=== PATIENT | female | born 1985 | race Caucasian/White ===

== ENCOUNTER 2017-04-22 18:01 | Emergency (ER) | payer MEDICAID, OTHER ==
[~2017-04-22] VITALS: Ht 162.6 cm; Wt 99.8 kg
[2017-04-22 18:22] VITALS: BP 109/65
== END 2017-04-22 19:38 | disposition left against medical advice (07) ==
LOC: ER 18:04
DX: M25.511 Pain in right shoulder (principal); Z53.21 Procedure and treatment not carried out due to patient leaving prior to being seen by health care provider
CPT/HCPCS: 99281

== ENCOUNTER 2017-10-07 17:45 | Emergency (ER) | payer MEDICAID ==
[~2017-10-07] VITALS: Ht 162.6 cm; Wt 104.3 kg
--- OUTSIDE RECORDS SUMMARY | 2017-10-07 17:51 | XMS REPORT ---
Author Author CHANDLER VOSS Organization [facility] Address [address] [place] [address] Care Team Providers Care Instructor Decorating Name Role Phone CHANDLER VOSS Unavailable PROBLEMS Type Condition ICD9-CM Code [id number] Code Onset Dates Condition Status SNOMED Code Problem Other chronic pain G89.29 Active 66695994 Problem Lumbago with sciatica, right side M54.41 Active 846238942 ALLERGIES Substance Reaction Event Type Date Status N.K.D.A. Unknown Non Drug Allergy Nov, Unknown SOCIAL HISTORY No smoking Hx information available PLAN OF CARE VITAL SIGNS MEDICATIONS Medication Instructions Dosage Frequency Start Date End Date Duration Status Ibuprofen 800 MG Orally Three times a day as needed for back pain 1 tablet Nov, Dec, 30 day(s) Active RESULTS No Results PROCEDURES No Known procedures IMMUNIZATIONS No Known Immunizations
--- OUTSIDE RECORDS SUMMARY | 2017-10-07 17:51 | XMS REPORT ---
Author Author CHANDLER VOSS Organization [facility] Address [address] [place] [address] Care Team Providers Care Student Development Specialist Name Role Phone CHANDLER VOSS Unavailable PROBLEMS Type Condition ICD9-CM Code [id number] Code Onset Dates Condition Status SNOMED Code Problem Other chronic pain G89.29 Active 17523020 Problem Lumbago with sciatica, right side M54.41 Active 843745952 ALLERGIES No Known Allergies SOCIAL HISTORY Never Assessed PLAN OF CARE Activity Details Follow Up 4 Weeks Reason:for establish care VITAL SIGNS Height 64 in 2016-11-27 Weight 236 lbs 2016-11-27 Temperature 98.2 degrees Fahrenheit 2016-11-27 Heart Rate 72 bpm 2016-11-27 Respiratory Rate 16 2016-11-27 BMI 40.50 kg/m2 2016-11-27 Blood pressure systolic 110 mmHg 2016-11-27 Blood pressure diastolic 70 mmHg 2016-11-27 MEDICATIONS Medication Instructions Dosage Frequency Start Date End Date Duration Status Ibuprofen 800 MG Orally Three times a day as needed for back pain 1 tablet Nov, Dec, 30 day(s) Active RESULTS No Results PROCEDURES No Known procedures IMMUNIZATIONS No Known Immunizations MEDICAL (GENERAL) HISTORY Type Description Date Surgical History section x 6. 2002, 2004, 2005, 2006, 2009, 2011 Surgical History hysterectomy 01/21 Hospitalization History Surgeries/Childbirth only
[2017-10-07 20:15] LABS: BILIRUBIN,URINE NEGATIVE (NEGATIVE); KETONES,URINE NEGATIVE (NEGATIVE); LEUKOCYTE ESTERASE ,URINE NEGATIVE (NEGATIVE); NITRITE,URINE NEGATIVE (NEGATIVE); PH,URINE 6 (5-9); PROTEIN,URINE NEGATIVE (NEGATIVE); UROBILINOGEN,URINE 1 MG/DL (NORMAL)
[2017-10-07] MEDS ORDERED: NS IV 1000 ML 1,000 ML IV ONE (20:53)
[2017-10-07] MEDS ORDERED: FAMOTIDINE 20MG/2ML IV (PEPCID) IV STA (20:53)
[2017-10-07] MEDS ORDERED: fentaNYL INJECTION 100 MCG/2 ML AMP IVP ONE (21:00)
[2017-10-07] MEDS ORDERED: ANTACID SUSP 30 ML UDC (MYLANTA) PO ONE (21:00)
[2017-10-07] MEDS ORDERED: LIDOCAINE 2% VISCOUS 15 ML UDC PO ONE (21:00)
[2017-10-07 21:18] LABS: BASOPHILS # (AUTO) 0.1 10^3/uL (0.0-0.1); BASOPHILS % (AUTO) 1 % (0-10); EOSINOPHILS # (AUTO) 0.5 10^3/uL (0.0-0.3); EOSINOPHILS % (AUTO) 4 % (0-10); LYMPHOCYTES # (AUTO) 3.8 X 10^3 (1.0-4.0); LYMPHOCYTES % (AUTO) 27 % (12-44); MEAN CORPUSCULAR HEMOGLOBIN 25 PG (25-34); MEAN CORPUSCULAR HGB CONC 34 G/DL (32-36); MEAN CORPUSCULAR VOLUME 74 FL (80-99); MEAN PLATELET VOLUME 11.3 FL (7.4-10.4); MONOCYTES # (AUTO) 1.1 X 10^3 (0.0-1.0); MONOCYTES % (AUTO) 8 % (0-12); NEUTROPHILS # (AUTO) 8.5 X 10^3 (1.8-7.8); NEUTROPHILS % (AUTO) 61 % (42-75); PLATELET COUNT 283 10^3/uL (130-400); RED BLOOD COUNT 5.32 10^6/uL (4.35-5.85); RED CELL DISTRIBUTION WIDTH 15.3 % (10.0-14.5); WHITE BLOOD COUNT 13.9 10^3/uL (4.3-11.0)
[2017-10-07 21:35] LABS: ALANINE AMINOTRANSFERASE 15 U/L (0-55); ANION GAP 9 MMOL/L (5-14); ASPARTATE AMINO TRANSFERASE 13 U/L (5-34); BILIRUBIN,TOTAL 0.2 MG/DL (0.1-1.0); BLOOD UREA NITROGEN 10 MG/DL (7-18); BUN/CREATININE RATIO 15; CALCIUM 9.3 MG/DL (8.5-10.1); CARBON DIOXIDE 23 MMOL/L (21-32); CHLORIDE 105 MMOL/L (98-107); CREATININE SERUM 0.68 MG/DL (0.60-1.30); GFR ESTIMATED > 60; GLUCOSE 86 MG/DL (70-105); POTASSIUM 4.3 MMOL/L (3.6-5.0); SODIUM 137 MMOL/L (135-145); TOTAL PROTEIN 7.1 GM/DL (6.4-8.2)
[2017-10-07] MEDS ORDERED: NS 100 ML (IVPB) BAG IV ONE (22:00)
[2017-10-07] MEDS ORDERED: IOHEXOL 350 MG/ML 100 ML (OMNIPAQUE 350) VIAL IV ONE (22:00)
--- NOTE | 2017-10-07 22:20 | Diagnostic Imaging Report ---
PROCEDURE: CT abdomen and pelvis with contrast, rule out appendicitis. TECHNIQUE: Multiple contiguous axial images were obtained through the abdomen and pelvis after the administration of intravenous contrast. INDICATION: Lower abdominal pain. Nausea, vomiting, and diarrhea. COMPARISON: None. FINDINGS: Included portions of the lung bases are clear. CT ABDOMEN: Normal appendix is identified. Small bowel loops are nondistended. The kidneys, adrenal glands, spleen, pancreas, and liver have a normal CT appearance. There is no loculated fluid collection, free fluid, nor free air within the abdomen. No abnormal mesenteric or retroperitoneal adenopathy is seen. Bony structures show no acute abnormalities. CT PELVIS: There is a dominant cystic structure within the left adnexa that measures 5.2 x 3.9 cm. Smaller similar-appearing focus is noted along the superomedial and slightly posterior margins of the dominant cyst and measures approximately 1.1 cm in diameter. There is no prior available for comparison. Urinary bladder is grossly unremarkable. There is no loculated fluid collection, free fluid, nor free air within the pelvis. No abnormal adenopathy is seen. Bony structures show no acute abnormalities. IMPRESSION: 1. Complex cystic structure in the left adnexa; likely ovarian. Conceivably, findings could be on the basis of hemorrhagic cyst. Soft tissue component cannot be excluded based on this exam. Cystadenoma is also within the differential. Further evaluation with dedicated pelvic sonogram is strongly recommended. Dictated by: Dictated on workstation # [id number]
--- NOTE | 2017-10-07 22:52 | ED Abdominal Pain ---
General Chief Complaint: Abdominal/GI Problems Stated Complaint: LOWER ABD PAIN Nursing Triage Note: pt c/o middle lower abd pain starting yesterday. denies n/v/d. Sepsis Screen: No Definite Risk Source of Information: Patient Exam Limitations: No Limitations History of Present Illness Time Seen By Provider: 20:45 Initial Comments Patient presents to ER by private conveyance with a chief complaint that going on 2 days she's had progressively worsening abdominal pain in her superpubic region that radiates to her right lower quadrant. It is worse with movement. Her bowel movements of been normal. She has no dysuria. She's had no fevers, chills however she has had some nausea but no vomiting. She has had a hysterectomy and right ovary removed for ovarian cyst. She's had 6 C-sections. She says the pain is so severe it feels like right after having a section. Allergies and Home Medications Allergies Coded Allergies: No Known Drug Allergies (Unverified , 04/22/17) Home Medications No Active Prescriptions or Reported Meds Review of Systems Constitutional: No chills, No fever, No malaise EENTM: No Symptoms Reported Respiratory: Denies Cough, Denies Shortness of Air Cardiovascular: Denies Chest Pain, Denies Syncope Gastrointestinal: See HPI, Abdominal Pain, Denies Constipated, Denies Diarrhea , Nausea Genitourinary: Denies Burning, Denies Discharge Musculoskeletal: No back pain, No joint pain Skin: No pruritus, No rash Psychiatric/Neurological: Denies Headache, Denies Numbness, Denies Paresthesia Past Vufzmba-Xadxjq-Dmzfxv Hx Patient Social History Alcohol Use: Denies Use Recreational Drug Use: No Smoking Status: Current Everyday Smoker Type Used: Cigarettes Recent Foreign Travel: No Contact w/Someone Who Travel: No Recent Infectious Disease Expo: No Recent Hopitalizations: No Physical Abuse: No Sexual Abuse: No Seasonal Allergies Seasonal Allergies: No Surgeries History of Surgeries: Yes (d&c) Surgeries: Section, Hysterectomy Respiratory History of Respiratory Disorde: No Cardiovascular History of Cardiac Disorders: No Neurological History of Neurological Disord: 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 Genitourinary History of Genitourinary Disor: No Gastrointestinal History of Gastrointestinal Di: No Musculoskeletal History of Musculoskeletal Dis: No Endocrine History of Endocrine Disorders: No HEENT History of HEENT Disorders: No Cancer History of Cancer: No Psychosocial History of Psychiatric Problem: No Suicide Risk Score: 0 Integumentary History of Skin or Integumenta: No Blood Transfusions History of Blood Disorders: No Physical Exam Vital Signs VS - Last 72 Hours, by Label 10/07/17 18:42 Temp 98.5 Pulse 76 Resp 16 B/P (MAP) 127/63 (84) Capillary Refill : Less Than 3 Seconds General Appearance: WD/WN, moderate distress HEENT: PERRL/EOMI, pharynx normal Neck: non-tender, supple, normal inspection Respiratory: chest non-tender, lungs clear, normal breath sounds, no respiratory distress, no accessory muscle use Cardiovascular: normal peripheral pulses, regular rate, rhythm, no edema Peripheral Pulses: 2+ Dorsalis Pedis (R), 2+ Left Dors-Pedis (L) Gastrointestinal: normal bowel sounds, No distended, guarding, rebound (right lower quadrant), tenderness (bilateral lower quadrants especially right as well as suprapubic.) Extremities: no pedal edema, normal capillary refill Neurologic/Psychiatric: alert, normal mood/affect, oriented x 3 Skin: normal color, warm/dry Focused Exam Evaluation Lactate Level Laboratory Tests 10/07/17 21:20: Lactic Acid Level 0.78 Lactic Acid Level Laboratory Tests Test 10/07/17 21:20 Lactic Acid Level 0.78 MMOL/L (0.50-2.00) Progress/Results/Core Measures Results/Orders Lab Results Laboratory Tests Test 10/07/17 20:10 10/07/17 21:05 10/07/17 21:20 Range/Units Urine Color YELLOW Urine Clarity CLEAR Urine pH 6 5-9 Urine Specific Freer 1.020 1.016-1.022 Urine Protein NEGATIVE NEGATIVE Urine Glucose (UA) NEGATIVE NEGATIVE Urine Ketones NEGATIVE NEGATIVE Urine Nitrite NEGATIVE NEGATIVE Urine Bilirubin NEGATIVE NEGATIVE Urine Urobilinogen 1 NORMAL MG/DL Urine Leukocyte Esterase NEGATIVE NEGATIVE Urine RBC (Auto) 1+ H NEGATIVE Urine RBC 0-2 /HPF Urine WBC NONE /HPF Urine Squamous Epithelial Cells 2-5 /HPF Urine Crystals NONE /LPF Urine Bacteria FEW H /HPF Urine Casts NONE /LPF Urine Mucus SMALL H /LPF Urine Culture Indicated NO Urine Opiates Screen NEGATIVE NEGATIVE Urine Oxycodone Screen NEGATIVE NEGATIVE Urine Methadone Screen NEGATIVE NEGATIVE Urine Propoxyphene Screen NEGATIVE NEGATIVE Urine Barbiturates Screen NEGATIVE NEGATIVE Ur Tricyclic Antidepressants Screen NEGATIVE NEGATIVE Urine Phencyclidine Screen NEGATIVE NEGATIVE Urine Amphetamines Screen NEGATIVE NEGATIVE Urine Methamphetamines Screen NEGATIVE NEGATIVE Urine Benzodiazepines Screen NEGATIVE NEGATIVE Urine Cocaine Screen NEGATIVE NEGATIVE Urine Cannabinoids Screen NEGATIVE NEGATIVE White Blood Count 13.9 H 4.3-11.0 10^3/uL Red Blood Count 5.32 4.35-5.85 10^6/uL Hemoglobin 13.2 11.5-16.0 G/DL Hematocrit 39 35-52 % Mean Corpuscular Volume 74 L 80-99 FL Mean Corpuscular Hemoglobin 25 25-34 PG Mean Corpuscular Hemoglobin Concent 34 32-36 G/DL Red Cell Distribution Width 15.3 H 10.0-14.5 % Platelet Count 283 130-400 10^3/uL Mean Platelet Volume 11.3 H 7.4-10.4 FL Neutrophils (%) (Auto) 61 42-75 % Lymphocytes (%) (Auto) 27 12-44 % Monocytes (%) (Auto) 8 0-12 % Eosinophils (%) (Auto) 4 0-10 % Basophils (%) (Auto) 1 0-10 % Neutrophils # (Auto) 8.5 H 1.8-7.8 X 10^3 Lymphocytes # (Auto) 3.8 1.0-4.0 X 10^3 Monocytes # (Auto) 1.1 H 0.0-1.0 X 10^3 Eosinophils # (Auto) 0.5 H 0.0-0.3 10^3/uL Basophils # (Auto) 0.1 0.0-0.1 10^3/uL Sodium Level 137 135-145 MMOL/L Potassium Level 4.3 3.6-5.0 MMOL/L Chloride Level 105 98-107 MMOL/L Carbon Dioxide Level 23 21-32 MMOL/L Anion Gap 9 5-14 MMOL/L Blood Urea Nitrogen 10 7-18 MG/DL Creatinine 0.68 0.60-1.30 MG/DL Estimat Glomerular Filtration Rate > 60 BUN/Creatinine Ratio 15 Glucose Level 86 70-105 MG/DL Calcium Level 9.3 8.5-10.1 MG/DL Total Bilirubin 0.2 0.1-1.0 MG/DL Aspartate Amino Transf (AST/SGOT) 13 5-34 U/L Alanine Aminotransferase (ALT/SGPT) 15 0-55 U/L Alkaline Phosphatase 67 40-136 U/L Total Protein 7.1 6.4-8.2 GM/DL Albumin 4.0 3.2-4.5 GM/DL Lactic Acid Level 0.78 0.50-2.00 MMOL/L My Orders Orders - DWIGHT BARRETO Ua Culture If Indicated (10/07/17 20:07) Ct Abd/Pelv W (Appendicitis) (10/07/17 20:53) Cbc With Automated Diff (10/07/17 20:53) Comprehensive Metabolic Panel (10/07/17 20:53) Drug Screen Stat (Urine) (10/07/17 20:53) Lactic Acid Analyzer (10/07/17 20:53) Saline Lock/Iv-Start (10/07/17 20:53) Ns Iv 1000 Ml (Sodium Chloride 0.9%) (10/07/17 20:53) Lidocaine 2% Viscous 15 Ml (Xylocaine Vi (10/07/17 21:00) Antacid Suspension (Mylanta Suspension (10/07/17 21:00) Famotidine Injection (Pepcid Injection) (10/07/17 20:53) Fentanyl Injection (Sublimaze Injection (10/07/17 21:00) Iohexol Injection (Omnipaque 350 Mg/Ml 1 (10/07/17 22:00) Ns (Ivpb) (Sodium Chloride 0.9% Ivpb Bag (10/07/17 22:00) Pharmacy Communication (Pharmacy Communi (10/07/17 21:46) Us Non Ob Pelvis Comp/Transvag (10/07/17 22:57) Fentanyl Injection (Sublimaze Injection (10/08/17 00:00) Medications Given in ED Current Medications Medications Dose Ordered Sig/Franklyn Route Start Time Stop Time Status Last Admin Dose Admin Al Hydrox/Mg Hydrox/Simethicone 30 ml ONCE ONCE PO 10/07/17 21:00 10/07/17 21:01 DC 10/07/17 21:17 30 ML Fentanyl Citrate 50 mcg ONCE ONCE IVP 10/07/17 21:00 10/07/17 21:01 DC 10/07/17 21:20 50 MCG Fentanyl Citrate 50 mcg ONCE ONCE IVP 10/08/17 00:00 10/08/17 00:01 DC 10/08/17 00:17 50 MCG Iohexol 100 ml ONCE ONCE IV 10/07/17 22:00 10/07/17 22:01 DC 10/07/17 21:55 100 ML Lidocaine HCl 15 ml ONCE ONCE PO 10/07/17 21:00 10/07/17 21:01 DC 10/07/17 21:17 15 ML Sodium Chloride 80 ml ONCE ONCE IV 10/07/17 22:00 10/07/17 22:01 DC 10/07/17 21:55 80 ML Sodium Chloride 1,000 ml @ 0 mls/hr Q0M ONCE IV 10/07/17 20:53 10/07/17 20:56 DC 10/07/17 21:19 0 MLS/HR Vital Signs/I&O Vital Sign - Last 12Hours 10/07/17 18:42 Temp 98.5 Pulse 76 Resp 16 B/P (MAP) 127/63 (84) Blood Pressure Mean: 84 Diagnostic Imaging Diagonstic Imaging: CT Plain Films/CT/US/NM/MRI: abdomen, pelvis (with contrast) Comments NAME: KURTIS TORRES [facility] REC#: [id number] PHYSICIAN: DWIGHT BARRETO MD CC: RUTH MORALES MD; DWIGHT BARRETO Page 2 of 2 RADIOLOGY REPORT VIA [place], [place] CC: RUTH MORALES MD; DWIGHT BARRETO Page 1 of 2 RADIOLOGY REPORT NAME: MELISSAKURTIS Rivera [facility] REC#: [id number] PT STATUS: REG ER : 1985 PHYSICIAN: DWIGHT BARRETO MD ADMIT DATE: 10/07/17/ER Signed Date of Exam: 10/07/17 CT ABD/PELV W (APPENDICITIS) PROCEDURE: CT abdomen and pelvis with contrast, rule out appendicitis. TECHNIQUE: Multiple contiguous axial images were obtained through the abdomen and pelvis after the administration of intravenous contrast. INDICATION: Lower abdominal pain. Nausea, vomiting, and diarrhea. COMPARISON: None. FINDINGS: Included portions of the lung bases are clear. CT ABDOMEN: Normal appendix is identified. Small bowel loops are nondistended. The kidneys, adrenal glands, spleen, pancreas, and liver have a normal CT appearance. There is no loculated fluid collection, free fluid, nor free air within the abdomen. No abnormal mesenteric or retroperitoneal adenopathy is seen. Bony structures show no acute abnormalities. CT PELVIS: There is a dominant cystic structure within the left adnexa that measures 5.2 x 3.9 cm. Smaller similar-appearing focus is noted along the superomedial and slightly posterior margins of the dominant cyst and measures approximately 1.1 cm in diameter. There is no prior available for comparison. Urinary bladder is grossly unremarkable. There is no loculated fluid collection, free fluid, nor free air within the pelvis. No abnormal adenopathy is seen. Bony structures show no acute abnormalities. IMPRESSION: 1. Complex cystic structure in the left adnexa; likely ovarian. Conceivably, findings could be on the basis of hemorrhagic cyst. Soft tissue component cannot be excluded based on this exam. Cystadenoma is also within the differential. Further evaluation with dedicated pelvic sonogram is strongly recommended. Dictated by: Dictated on workstation # [id number] Dict: 10/07/172210 Trans: 10/07/172239 Interpreted by: RUTH MORALES MD Electronically signed by: RUTH MORALES MD 10/07/172239 Reviewed: Reviewed by Me Diagonstic Imaging: Ultrasound Plain Films/CT/US/NM/MRI: pelvis Comments Stat read: Findings suggestive of a left ovarian hemorrhagic cyst measuring up to 4.67 m. Recommend follow-up ultrasound in 6-8 weeks to document resolution. Reviewed: Reviewed by Me Departure Impression Impression: Primary Impression: Hemorrhagic cyst of left ovary Disposition: HOME, SELF-CARE Condition: Improved Departure-Patient Inst. Decision time for Depature: 02:04 Referrals: NO,LOCAL PHYSICIAN (PCP/Family) Primary Care Physician Patient Instructions: Ovarian Cyst (DC) Add. Discharge Instructions: Drink plenty of fluids and get some rest tonight. Use Tylenol 1000 mg every 8 hours and or ibuprofen 800 mg every 8 hours as needed for pain. If this does not control your pain well enough you may use the hydrocodone one tablet every 6 hours as needed. Hydrocodone can cause constipation so you should be on some stool softener while using it. Establish with a primary care physician and planned follow-up ultrasound in 6-8 weeks to document resolution of your hemorrhagic ovarian cyst. All discharge instructions reviewed with patient and/or family. Voiced understanding. Scripts Hydrocodone/Acetaminophen (Hydrocodon -Acetaminophen 5-325) 1 Each Tablet 1 EACH PO Q6H Y for BREAKTHROUGH PAIN, #15 TAB 0 Refills Prov: DWIGHT BARRETO 10/08/17 DWIGHT BARRETO Oct 07, 2017 22:52
[2017-10-08] MEDS ORDERED: fentaNYL INJECTION 100 MCG/2 ML AMP IVP ONE
[2017-10-08] MEDS ORDERED: HYDR-3812 PO (02:06)
[2017-10-08 02:22] VITALS: BP 127/63
--- NOTE | 2017-10-08 07:20 | Diagnostic Imaging Report ---
Transabdominal and transvaginal pelvic ultrasound. INDICATION: Severe pelvic pain. History of hysterectomy and right oophorectomy. FINDINGS: The hysterectomy bed is unremarkable. There is a left adnexal mass measuring 5.8 x 4.6 x 4.9 cm with internal hypoechoic appearance and layering seen with generally no internal vascularity except at the periphery which probably represents ovarian tissue based on the ultrasound images provided with color Doppler. The lesion is most likely related to a hemorrhagic cyst. The hemorrhagic cyst itself is up to 4.6 cm in size. IMPRESSION: Left ovarian hypoechoic heterogenous mass measuring 4.6 cm with suggestion of adjacent left ovarian tissue that has internal vascularity. The mass is probably a hemorrhagic left ovarian cyst. Followup ultrasound in six weeks is recommended to document resolution. This reading agrees with the [facility] report. Dictated by: Dictated on workstation # [id number]
== END 2017-10-08 02:24 | disposition home or self-care (01) ==
LOC: EDUNIT# 17:45 → ER 17:47
DX: N83.202 Unspecified ovarian cyst, left side (principal); F17.210 Nicotine dependence, cigarettes, uncomplicated; Z90.710 Acquired absence of both cervix and uterus; Z87.59 Personal history of other complications of pregnancy, childbirth and the puerperium
CPT/HCPCS: 36415; 74177; 76830; 76856; 80053; 80306; 81000; 83605; 85025

== ENCOUNTER 2018-04-09 15:59 | Emergency (ER) | payer MEDICAID ==
[~2018-04-09] VITALS: Ht 162.6 cm; Wt 99.3 kg
[~2018-04-09 15:59] MED LIST: ACHD5005 PO
[2018-04-09] MEDS ORDERED: LACTATED RINGERS 1,000 ML IV ONE (16:55)
[2018-04-09] MEDS ORDERED: ONDANSETRON 4 MG/2 ML (SDV) Z0FRAN IVP ONE (17:00)
[2018-04-09 17:03] LABS: BASOPHILS # (AUTO) 0.1 10^3/uL (0.0-0.1); BASOPHILS % (AUTO) 1 % (0-10); BILIRUBIN,URINE NEGATIVE (NEGATIVE); CLARITY,URINE SLIGHTLY CLOUDY; COLOR,URINE YELLOW; EOSINOPHILS # (AUTO) 0.2 10^3/uL (0.0-0.3); EOSINOPHILS % (AUTO) 2 % (0-10); GLUCOSE, URINE (UA) NEGATIVE (NEGATIVE); HEMATOCRIT 35 % (35-52); HEMOGLOBIN 12.2 G/DL (11.5-16.0); KETONES,URINE 1+ (NEGATIVE); LEUKOCYTE ESTERASE ,URINE 1+ (NEGATIVE); LYMPHOCYTES # (AUTO) 2.3 X 10^3 (1.0-4.0); LYMPHOCYTES % (AUTO) 21 % (12-44); MEAN CORPUSCULAR HEMOGLOBIN 26 PG (25-34); MEAN CORPUSCULAR HGB CONC 35 G/DL (32-36); MEAN CORPUSCULAR VOLUME 74 FL (80-99); MEAN PLATELET VOLUME 11.4 FL (7.4-10.4); MONOCYTES # (AUTO) 0.6 X 10^3 (0.0-1.0); MONOCYTES % (AUTO) 6 % (0-12); NEUTROPHILS # (AUTO) 7.6 X 10^3 (1.8-7.8); NEUTROPHILS % (AUTO) 70 % (42-75); NITRITE,URINE NEGATIVE (NEGATIVE); PH,URINE 5 (5-9); PLATELET COUNT 229 10^3/uL (130-400); PROTEIN,URINE 1+ (NEGATIVE); RED BLOOD COUNT 4.73 10^6/uL (4.35-5.85); RED CELL DISTRIBUTION WIDTH 15.2 % (10.0-14.5); UROBILINOGEN,URINE NORMAL (NORMAL); WHITE BLOOD COUNT 10.8 10^3/uL (4.3-11.0)
[2018-04-09 17:10] LABS: BACTERIA,URINE TRACE /HPF; WBC,URINE RARE /HPF
[2018-04-09] MEDS ORDERED: KETOROLAC 30 MG/ML VIAL IVP STA (17:12)
[2018-04-09 17:20] LABS: ALANINE AMINOTRANSFERASE 14 U/L (0-55); ALKALINE PHOSPHATASE 71 U/L (40-136); AMYLASE 38 U/L (25-125); BILIRUBIN,TOTAL 0.4 MG/DL (0.1-1.0); BUN/CREATININE RATIO 12; CALCIUM 8.9 MG/DL (8.5-10.1); CARBON DIOXIDE 22 MMOL/L (21-32); CHLORIDE 111 MMOL/L (98-107); CREATININE SERUM 0.66 MG/DL (0.60-1.30); GFR ESTIMATED > 60; GLUCOSE 82 MG/DL (70-105); LIPASE 7 U/L (8-78); POTASSIUM 3.6 MMOL/L (3.6-5.0); SODIUM 143 MMOL/L (135-145); TOTAL PROTEIN 6.5 GM/DL (6.4-8.2)
--- NOTE | 2018-04-09 17:25 | ED Abdominal Pain ---
General Chief Complaint: Abdominal/GI Problems Stated Complaint: THROWING UP,CAN'T KEEP ANYTHING DOWN, ABD PAIN Nursing Triage Note: PT CO OF R LOWER ABD PAIN SINCE APPROX 1100 TODAY. PT STATES HAS HAD DIARRHEA ONCE, AND VOMITING A COUPLE TIMES, PT VERY TENDER TO R LOWER ABD. Sepsis Screen: No Definite Risk Source of Information: Patient Exam Limitations: No Limitations History of Present Illness Date Seen by Provider: Apr 09, 2018 Time Seen by Provider: 16:23 Initial Comments PT ARRIVES VIA POV FROM HOME STATES SHE HAS "NOT FELT GOOD" FOR THE LAST 2-3 DAYS C/O RLQ PAIN SINCE 1100 TODAY--STATES PAIN IS "DULL, ACHEY" C/O NAUSEA/VOMITING AND DIARRHEA--EMESIS X 2, DIARRHEA X 1 STATES SHE CANNOT KEEP WATER OR GATORADE DOWN NO URINARY SYMPTOMS AND VOIDING A NORMAL AMOUNT NO FEVER/SWEATS/CHILLS ATE BREAKFAST AT 0840 THIS AM--BISCUIT + GRAVY. NO KNOWN SICK CONTACTS OR SUSPICIOUS FOODS NO HISTORY OF SIMILAR Allergies and Home Medications Allergies Coded Allergies: No Known Drug Allergies (Unverified , 04/22/17) Home Medications Naproxen 500 Mg Tablet, 500 MG PO BID Prescribed by: WAI FOSTER on 04/09/181746 Nitrofurantoin Monohyd/M-Cryst 100 Mg Capsule, 100 MG PO BID Prescribed by: WAI FOSTER on 04/09/181746 Patient Home Medication List Home Medication List Reviewed: Yes Review of Systems Constitutional: no symptoms reported Gastrointestinal: See HPI, Abdominal Pain, Diarrhea, Nausea, Poor Appetite, Poor Fluid Intake, Vomiting Genitourinary: No Symptoms Reported Musculoskeletal: no symptoms reported Past Zxjvpki-Vwutyj-Vujweh Hx Patient Social History Alcohol Use: Denies Use Recreational Drug Use: Yes (DENIES, BUT TESTED + FOR APMHETAMINES AND BENZO'S ON 04/09/18 ) Smoking Status: Current Everyday Smoker (1 PPD) Type Used: Cigarettes Recent Foreign Travel: No Contact w/Someone Who Travel: No Recent Infectious Disease Expo: No Recent Hopitalizations: No Physical Abuse: No Sexual Abuse: No Seasonal Allergies Seasonal Allergies: No Past Medical History Surgeries: Yes (D&C; HYST/RSO) Section, Hysterectomy, Oophorectomy Respiratory: No Cardiac: No 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 Genitourinary: No Gastrointestinal: No Musculoskeletal: No Endocrine: No HEENT: Yes (EXTENSIVE DENTAL DECAY) Cancer: No Psychosocial: No Nursing Suicide Risk Score: 0 Integumentary: No Blood Disorders: No Physical Exam Vital Signs Vital Signs - First Documented 04/09/18 16:30 Temp 97.5 Pulse 86 Resp 18 B/P (MAP) 111/52 (71) Pulse Ox 95 Capillary Refill : Less Than 3 Seconds General Appearance: WD/WN, no apparent distress, obese, other (PT WALKS UPRIGHT AND MOVES WITHOUT DIFFICULTY) HEENT: other (EXTENSIVE DENTAL DECAY--ESPECIALLY FRONT TEETH--ALL DECAYED DOWN TO GUMS) Respiratory: normal breath sounds Cardiovascular: regular rate, rhythm, no murmur Gastrointestinal: normal bowel sounds, soft, no organomegaly, no pulsatile mass ; No distended, No guarding, No rebound; tenderness (DIFFUSE ABDOMINAL TENDERNESS, BUT MOST TENDER IN RLQ, SUPRABPUBIC AREAS ); No mass Extremities: normal inspection Back: normal inspection, no CVA tenderness 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, no motor/sensory deficits, alert, normal mood/affect, oriented x 3 Skin: normal color, warm/dry Progress/Results/Core Measures Results/Orders Lab Results Laboratory Tests Test 04/09/18 16:55 Range/Units White Blood Count 10.8 4.3-11.0 10^3/uL Red Blood Count 4.73 4.35-5.85 10^6/uL Hemoglobin 12.2 11.5-16.0 G/DL Hematocrit 35 35-52 % Mean Corpuscular Volume 74 L 80-99 FL Mean Corpuscular Hemoglobin 26 25-34 PG Mean Corpuscular Hemoglobin Concent 35 32-36 G/DL Red Cell Distribution Width 15.2 H 10.0-14.5 % Platelet Count 229 130-400 10^3/uL Mean Platelet Volume 11.4 H 7.4-10.4 FL Neutrophils (%) (Auto) 70 42-75 % Lymphocytes (%) (Auto) 21 12-44 % Monocytes (%) (Auto) 6 0-12 % Eosinophils (%) (Auto) 2 0-10 % Basophils (%) (Auto) 1 0-10 % Neutrophils # (Auto) 7.6 1.8-7.8 X 10^3 Lymphocytes # (Auto) 2.3 1.0-4.0 X 10^3 Monocytes # (Auto) 0.6 0.0-1.0 X 10^3 Eosinophils # (Auto) 0.2 0.0-0.3 10^3/uL Basophils # (Auto) 0.1 0.0-0.1 10^3/uL Urine Color YELLOW Urine Clarity SLIGHTLY CLOUDY Urine pH 5 5-9 Urine Specific [place] 1.025 H 1.016-1.022 Urine Protein 1+ H NEGATIVE Urine Glucose (UA) NEGATIVE NEGATIVE Urine Ketones 1+ H NEGATIVE Urine Nitrite NEGATIVE NEGATIVE Urine Bilirubin NEGATIVE NEGATIVE Urine Urobilinogen NORMAL NORMAL MG/DL Urine Leukocyte Esterase 1+ H NEGATIVE Urine RBC (Auto) 1+ H NEGATIVE Urine RBC NONE /HPF Urine WBC RARE /HPF Urine Squamous Epithelial Cells 10-25 H /HPF Urine Crystals NONE /LPF Urine Bacteria TRACE /HPF Urine Casts NONE /LPF Urine Mucus MODERATE H /LPF Urine Culture Indicated NO Sodium Level 143 135-145 MMOL/L Potassium Level 3.6 3.6-5.0 MMOL/L Chloride Level 111 H 98-107 MMOL/L Carbon Dioxide Level 22 21-32 MMOL/L Anion Gap 10 5-14 MMOL/L Blood Urea Nitrogen 8 7-18 MG/DL Creatinine 0.66 0.60-1.30 MG/DL Estimat Glomerular Filtration Rate > 60 BUN/Creatinine Ratio 12 Glucose Level 82 70-105 MG/DL Calcium Level 8.9 8.5-10.1 MG/DL Total Bilirubin 0.4 0.1-1.0 MG/DL Aspartate Amino Transf (AST/SGOT) 11 5-34 U/L Alanine Aminotransferase (ALT/SGPT) 14 0-55 U/L Alkaline Phosphatase 71 40-136 U/L Total Protein 6.5 6.4-8.2 GM/DL Albumin 4.0 3.2-4.5 GM/DL Amylase Level 38 25-125 U/L Lipase 7 L 8-78 U/L Urine Opiates Screen NEGATIVE NEGATIVE Urine Oxycodone Screen NEGATIVE NEGATIVE Urine Methadone Screen NEGATIVE NEGATIVE Urine Propoxyphene Screen NEGATIVE NEGATIVE Urine Barbiturates Screen NEGATIVE NEGATIVE Ur Tricyclic Antidepressants Screen NEGATIVE NEGATIVE Urine Phencyclidine Screen NEGATIVE NEGATIVE Urine Amphetamines Screen POSITIVE H NEGATIVE Urine Methamphetamines Screen NEGATIVE NEGATIVE Urine Benzodiazepines Screen POSITIVE H NEGATIVE Urine Cocaine Screen NEGATIVE NEGATIVE Urine Cannabinoids Screen NEGATIVE NEGATIVE My Orders Orders - WAI FOSTER DO Amylase (04/09/18 16:55) Cbc With Automated Diff (04/09/18 16:55) Comprehensive Metabolic Panel (04/09/18 16:55) Lipase (04/09/18 16:55) Ua Culture If Indicated (04/09/18 16:55) Saline Lock/Iv-Start (04/09/18 16:55) Saline Lock/Iv-Start (04/09/18 16:55) Lactated Ringers (Lr 1000 Ml Iv Solution (04/09/18 16:55) Ondansetron Injection (Zofran Injectio (04/09/18 17:00) Ct Abd/Pelvis Wo(Kidney Stone) (04/09/18 17:12) Abdomen/Kub 1view (04/09/18 17:12) Ketorolac Injection (Toradol Injection) (04/09/18 17:12) Ceftriaxone Injection (Rocephin Injectio (04/09/18 17:45) Urine Culture (04/09/18 17:42) Drug Screen Stat (Urine) (04/09/18 17:43) Medications Given in ED Current Medications Medications Dose Ordered Sig/[place] Route Start Time Stop Time Status Last Admin Dose Admin Ceftriaxone Sodium 1000 mg/ Sodium Chloride 50 ml @ 100 mls/hr ONCE ONCE IV 04/09/18 17:45 04/09/18 18:14 DC 04/09/18 18:23 100 MLS/HR Lactated Ringer's 1,000 ml @ 0 mls/hr Q0M ONCE IV 04/09/18 16:55 04/09/18 16:58 DC 04/09/18 17:45 1,000 MLS/HR Ondansetron HCl 4 mg ONCE ONCE IVP 04/09/18 17:00 04/09/18 17:01 DC 04/09/18 17:45 4 MG Vital Signs/I&O 04/09/18 16:30 Temp 97.5 Pulse 86 Resp 18 B/P (MAP) 111/52 (71) Pulse Ox 95 Blood Pressure Mean: 71 Progress Progress Note : Progress Note UNEVENTFUL ER STAY NO VOMITING OR DIARRHEA DURING ER STAY Diagnostic Imaging Comments KUB--NO ACUTE PROCESS CT ABDOMEN/PELVIS--NO ACUTE PROCESS PER RADIOLOGIST REPORTS Reviewed: Reviewed by Me Departure Impression Primary Impression: Urinary tract infection Additional Impression: ABDOMINAL PAIN Disposition: 01 HOME, SELF-CARE Condition: Improved Departure-Patient Inst. Referrals: [facility] Patient Instructions: Acute Abdomen (Belly Pain), Adult (DC), Urinary Tract Infection, Adult (DC) Add. Discharge Instructions: CLEAR LIQUIDS--WATER, BROTH, JELLO, GATORAE NO FOOD UNTIL YOUR PAIN IS COMPLETELY GONE, THEN ADD BRATS DIET TO CLEAR LIQUIDS --BANANAS, RICE, APPLESAUCE, TOAST, SALTINES TYLENOL NEEDED FOR PAIN [facility] NO BETTER, RETURN TO ER IF WORSE All discharge instructions reviewed with patient and/or family. Voiced understanding. Scripts Naproxen (Naproxen) 500 Mg Tablet 500 MG PO BID, #20 TAB Prov: WAI FOSTER DO 04/09/18 Nitrofurantoin Monohyd/M-Cryst (Macrobid 100 mg Capsule) 100 Mg Capsule 100 MG PO BID, #20 CAP Prov: WAI FOSTER DO 04/09/18 WAI FOSTER DO Apr 09, 2018 17:25
--- NOTE | 2018-04-09 17:36 | Diagnostic Imaging Report ---
PROCEDURE: CT urinary tract, rule out kidney stone. TECHNIQUE: Multiple contiguous axial images were obtained through the abdomen and pelvis without the use of intravenous contrast. INDICATION: Right lower quadrant pain with nausea and vomiting x 3 days. Status post hysterectomy. FINDINGS: The lung bases are clear. The liver appears normal. The gallbladder and bile ducts are normal. The pancreas and spleen are normal. The adrenal glands appear normal. Kidneys appear normal. There are no renal calculi. There is no hydronephrosis. Ureters are not dilated. The bladder is decompressed. The stomach and small bowel are not distended. The colon shows normal stool and gas pattern. There is no evidence of constipation. The appendix is normal. There are no pelvic masses. There is no free air or free fluid. IMPRESSION: Normal CT scan of the abdomen and pelvis without contrast. Dictated by: Dictated on workstation # [id number]
[2018-04-09] MEDS ORDERED: cefTRIAXone INJECTION 1,000 MG in NS (IVPB) 50 ML IV ONE (17:45)
[2018-04-09] MEDS ORDERED: NITR-65 PO (17:47)
[2018-04-09] MEDS ORDERED: NAPR-915 PO (17:47)
--- NOTE | 2018-04-09 17:47 | Diagnostic Imaging Report ---
INDICATION: Right lower quadrant pain. EXAMINATION: KUB. FINDINGS: No calculi are seen overlying the kidneys. No calcifications are seen along the paths of the ureters or bladder. There are two small rounded calcifications, one in the midpelvis and one to the left which are consistent with phleboliths. There is no organomegaly. Renal outlines appear normal. No bony abnormalities. Bowel gas pattern appears normal throughout without evidence constipation. IMPRESSION: Normal KUB. Dictated by: Dictated on workstation # [id number]
[2018-04-09 18:00] LABS: AMPHETAMINE SCREEN, URINE POSITIVE (NEGATIVE); BARBITURATE SCREEN URINE NEGATIVE (NEGATIVE); BENZODIAZEPINES SCREEN URINE POSITIVE (NEGATIVE); CANNABINOID SCREEN, URINE NEGATIVE (NEGATIVE); COCAINE SCREEN URINE NEGATIVE (NEGATIVE); METHADONE STAT NEGATIVE (NEGATIVE); METHAMPHETAMINE SCREEN URINE S NEGATIVE (NEGATIVE); OPIATE SCREEN URINE NEGATIVE (NEGATIVE); OXYCODONE STAT NEGATIVE (NEGATIVE); PROPOXYPHENE STAT NEGATIVE (NEGATIVE); TRICYCLIC ANTIDEPRESSANTS SCRE NEGATIVE (NEGATIVE)
[2018-04-09 18:47] VITALS: BP 111/52
== END 2018-04-09 18:47 | disposition home or self-care (01) ==
LOC: EDUNIT# 15:59 → ER 16:01
DX: N39.0 Urinary tract infection, site not specified (principal); F17.210 Nicotine dependence, cigarettes, uncomplicated; Z87.59 Personal history of other complications of pregnancy, childbirth and the puerperium; Z90.710 Acquired absence of both cervix and uterus
CPT/HCPCS: 36415; 74018; 74176; 80053; 80306; 81000; 82150; 83690; 85025; 87088; 96361; 96365; 96375

== ENCOUNTER 2018-07-22 13:16 | Emergency (ER) | payer MEDICAID ==
[~2018-07-22] VITALS: Ht 162.6 cm; Wt 99.8 kg
[~2018-07-22 13:16] MED LIST changes: +NAPR-915 PO; +NITR-65 PO
--- NOTE | 2018-07-22 13:51 | ED Lower Extremity ---
General Chief Complaint: Lower Extremity Stated Complaint: R LEG SORE/SWELLING Source: patient Exam Limitations: no limitations History of Present Illness Date Seen by Provider: Jul 22, 2018 Time Seen by Provider: 13:45 Initial Comments Patient is a 33-year-old female who presents to the emergency room with complaints of intermittent right leg swelling and calf pain that radiates to the right knee for the past 3 months. She denies injury, shortness of breath, increased redness to the extremity. Onset: other (3 months) Pain/Injury Location: right knee, right other (calf) Allergies and Home Medications Allergies Coded Allergies: No Known Drug Allergies (Unverified , 04/22/17) Home Medications Naproxen 500 Mg Tablet, 500 MG PO BID Prescribed by: WAI FOSTER on 04/09/181746 Nitrofurantoin Monohyd/M-Cryst 100 Mg Capsule, 100 MG PO BID Prescribed by: WAI FOSTER on 04/09/181746 Patient Home Medication List Home Medication List Reviewed: Yes Review of Systems Constitutional: see HPI; No chills, No fever Musculoskeletal: see HPI, joint pain (right knee/calf), joint swelling (right knee/ankle swelling ), muscle pain (right calf pain) All Other Systems Reviewed Negative Unless Noted: Yes Past Lvxdulc-Czlozj-Yshalm Hx Past Med/Social Hx: Reviewed Nursing Past Med/Soc Hx Patient Social History Type Used: Cigarettes Recent Hopitalizations: No Seasonal Allergies Seasonal Allergies: No Past Medical History Surgeries: Yes (D&C; HYST/RSO) Section, Hysterectomy, Oophorectomy Respiratory: No Cardiac: No Neurological: No CATH LAB History: Hysterectomy Genitourinary: No Gastrointestinal: No Musculoskeletal: No Endocrine: No HEENT: Yes (EXTENSIVE DENTAL DECAY) Cancer: No Psychosocial: No Integumentary: No Blood Disorders: No Family Medical History Reviewed Nursing Family Hx Physical Exam Vital Signs Vital Signs - First Documented 07/22/18 13:24 Temp 97.3 Pulse 74 Resp 18 B/P (MAP) 121/75 (90) Pulse Ox 98 O2 Delivery Room Air Capillary Refill : Height, Weight, BMI Height: 5'4.00" Weight: 219lbs. oz. 99.778028de; BMI Method:Stated General Appearance: WD/WN, no apparent distress Cardiovascular: normal peripheral pulses, regular rate, rhythm, no edema, no gallop, no JVD, no murmur Respiratory: chest non-tender, lungs clear, normal breath sounds, no respiratory distress, no accessory muscle use Legs: left leg non-tender, left leg normal inspection, left leg normal range of motion; bilateral leg no evidence of injury; right leg pain (c retirement pain), right leg swelling Ankles: right ankle swelling Neurologic/Psychiatric: alert, normal mood/affect, oriented x 3 Skin: normal color, warm/dry Progress/Results/Core Measures Results/Orders Lab Results Laboratory Tests Test 07/22/18 13:50 Range/Units White Blood Count 7.9 4.3-11.0 10^3/uL Red Blood Count 4.97 4.35-5.85 10^6/uL Hemoglobin 13.0 11.5-16.0 G/DL Hematocrit 38 35-52 % Mean Corpuscular Volume 76 L 80-99 FL Mean Corpuscular Hemoglobin 26 25-34 PG Mean Corpuscular Hemoglobin Concent 35 32-36 G/DL Red Cell Distribution Width 15.3 H 10.0-14.5 % Platelet Count 259 130-400 10^3/uL Mean Platelet Volume 11.2 H 7.4-10.4 FL Neutrophils (%) (Auto) 64 42-75 % Lymphocytes (%) (Auto) 24 12-44 % Monocytes (%) (Auto) 8 0-12 % Eosinophils (%) (Auto) 3 0-10 % Basophils (%) (Auto) 1 0-10 % Neutrophils # (Auto) 5.0 1.8-7.8 X 10^3 Lymphocytes # (Auto) 1.9 1.0-4.0 X 10^3 Monocytes # (Auto) 0.6 0.0-1.0 X 10^3 Eosinophils # (Auto) 0.3 0.0-0.3 10^3/uL Basophils # (Auto) 0.1 0.0-0.1 10^3/uL Activated Partial Thromboplast Time 36 H 24-35 SEC D-Dimer 0.33 0.00-0.49 UG/ML Sodium Level 135 135-145 MMOL/L Potassium Level 4.0 3.6-5.0 MMOL/L Chloride Level 106 98-107 MMOL/L Carbon Dioxide Level 24 21-32 MMOL/L Anion Gap 5 5-14 MMOL/L Blood Urea Nitrogen 10 7-18 MG/DL Creatinine 0.69 0.60-1.30 MG/DL Estimat Glomerular Filtration Rate > 60 BUN/Creatinine Ratio 14 Glucose Level 86 70-105 MG/DL Calcium Level 9.0 8.5-10.1 MG/DL Corrected Calcium 9.0 8.5-10.1 MG/DL Total Bilirubin 0.5 0.1-1.0 MG/DL Aspartate Amino Transf (AST/SGOT) 13 5-34 U/L Alanine Aminotransferase (ALT/SGPT) 11 0-55 U/L Alkaline Phosphatase 64 40-136 U/L Total Protein 6.5 6.4-8.2 GM/DL Albumin 4.0 3.2-4.5 GM/DL My Orders Orders - KRISTI LLANOS Comprehensive Metabolic Panel (07/22/18 13:34) Cbc With Automated Diff (07/22/18 13:34) Partial Thromboplastin Time (07/22/18 13:34) Fibrin Degradation Products (07/22/18 13:34) Us Venous Lower Ext Rt (07/22/18 13:34) Saline Lock/Iv-Start (07/22/18 13:34) Monitor-Rhythm Ecg Trace Only (07/22/18 13:34) Vital Signs/I&O 07/22/18 07/22/18 13:24 15:41 Temp 97.3 Pulse 74 66 Resp 18 18 B/P (MAP) 121/75 (90) 118/70 Pulse Ox 98 98 O2 Delivery Room Air Room Air Progress Progress Note : Time: 15:21 Progress Note I've seen and evaluated the patient. I informed her of normal laboratory studies and imaging studies. She was instructed to follow-up with a primary care provider within 1 week for recheck. She agrees with plans of care, plans for discharge, return precautions were given. Diagnostic Imaging Diagonstic Imaging: Ultrasound Comments NAME: MELISSAKURTISBRUCE ERAZO REC#: [id number] PT STATUS: REG ER : 1985 PHYSICIAN: KRISTI LLANOS ADMIT DATE: 07/22/18/ER Draft Date of Exam:07/22/18 US VENOUS LOWER EXT RT PROCEDURE: US right lower extremity venous. TECHNIQUE: Multiple real-time grayscale images were obtained over the right lower extremity in various projections. Additional duplex Doppler and color Doppler images were also obtained. INDICATION: Right leg swelling. There is no evidence of a right lower extremity DVT. The right lower extremity deep venous system shows normal compressibility with normal response to augmentation and Valsalva. No fluid collection or mass is seen. IMPRESSION: No evidence of right lower extremity DVT. Dictated on workstation # [id number] Dict: 07/22/18 1514 Trans: 07/22/18 1518 [facility] [id number] Interpreted by: IMTIAZ PEREZ MD Electronically signed by: Reviewed: Reviewed by Me Departure Impression Primary Impression: Knee pain Disposition: HOME, SELF-CARE Condition: Stable/Unchanged Departure-Patient Inst. Decision time for Depature: 15:21 Referrals: NO,LOCAL PHYSICIAN (PCP) Primary Care Physician Patient Instructions: Knee Pain (DC), LOCAL PHYSICIAN LIST Add. Discharge Instructions: You may use ibuprofen and Tylenol as directed by the bottle for pain. Follow-up with a primary care provider within 1 week for recheck. Return back to the emergency room for any worsening symptoms or concerns as needed. All discharge instructions reviewed with patient and/or family. Voiced understanding. Work/School Note: Work Release Form Date Seen in the Emergency Department: Jul 22, 2018 Return to Work: Jul 24, 2018 Restrictions: No Restrictions KRISTI LLANOS Jul 22, 2018 13:50
[2018-07-22 14:06] LABS: BASOPHILS # (AUTO) 0.1 10^3/uL (0.0-0.1); BASOPHILS % (AUTO) 1 % (0-10); EOSINOPHILS # (AUTO) 0.3 10^3/uL (0.0-0.3); EOSINOPHILS % (AUTO) 3 % (0-10); HEMATOCRIT 38 % (35-52); LYMPHOCYTES # (AUTO) 1.9 X 10^3 (1.0-4.0); LYMPHOCYTES % (AUTO) 24 % (12-44); MEAN CORPUSCULAR HEMOGLOBIN 26 PG (25-34); MEAN CORPUSCULAR HGB CONC 35 G/DL (32-36); MEAN CORPUSCULAR VOLUME 76 FL (80-99); MEAN PLATELET VOLUME 11.2 FL (7.4-10.4); MONOCYTES # (AUTO) 0.6 X 10^3 (0.0-1.0); MONOCYTES % (AUTO) 8 % (0-12); NEUTROPHILS % (AUTO) 64 % (42-75); PLATELET COUNT 259 10^3/uL (130-400); RED BLOOD COUNT 4.97 10^6/uL (4.35-5.85); RED CELL DISTRIBUTION WIDTH 15.3 % (10.0-14.5); WHITE BLOOD COUNT 7.9 10^3/uL (4.3-11.0)
[2018-07-22 14:24] LABS: FIBRIN DEGRADATION PRODUCTS 0.33 UG/ML (0.00-0.49)
[2018-07-22 14:29] LABS: ALANINE AMINOTRANSFERASE 11 U/L (0-55); ALKALINE PHOSPHATASE 64 U/L (40-136); BILIRUBIN,TOTAL 0.5 MG/DL (0.1-1.0); BUN/CREATININE RATIO 14; CARBON DIOXIDE 24 MMOL/L (21-32); CHLORIDE 106 MMOL/L (98-107); CREATININE SERUM 0.69 MG/DL (0.60-1.30); GFR ESTIMATED > 60; GLUCOSE 86 MG/DL (70-105); SODIUM 135 MMOL/L (135-145); TOTAL PROTEIN 6.5 GM/DL (6.4-8.2)
--- NOTE | 2018-07-22 15:18 | Diagnostic Imaging Report ---
PROCEDURE: US right lower extremity venous. TECHNIQUE: Multiple real-time grayscale images were obtained over the right lower extremity in various projections. Additional duplex Doppler and color Doppler images were also obtained. INDICATION: Right leg swelling. There is no evidence of a right lower extremity DVT. The right lower extremity deep venous system shows normal compressibility with normal response to augmentation and Valsalva. No fluid collection or mass is seen. IMPRESSION: No evidence of right lower extremity DVT. Dictated by: Dictated on workstation # [id number]
[2018-07-22 15:41] VITALS: BP 118/70
== END 2018-07-22 15:42 | disposition home or self-care (01) ==
LOC: EDUNIT# 13:16 → ER 13:17
DX: M25.561 Pain in right knee (principal); M79.89 Other specified soft tissue disorders; Z90.710 Acquired absence of both cervix and uterus; Z98.890 Other specified postprocedural states
CPT/HCPCS: 36415; 80053; 85025; 85379; 85730